=== PATIENT | female | born 1950 | race Two or more races ===

== ENCOUNTER 2019-04-23 12:05 | Emergency (ER) | payer MEDICAID, OTHER ==
[~2019-04-23] VITALS: Ht 152.4 cm; Wt 74.8 kg
[2019-04-23] MEDS ORDERED: LIDOCAINE HCL/MPF 1% 30 ML VIAL IJ ONE (12:24)
[2019-04-23] MEDS ORDERED: TDAP [DIPH/PERTUSSIS/TET] 0.5 ML VIAL IM ONE ×2 (12:26→12:30)
[2019-04-23] MEDS ORDERED: ACETAMINOPHEN 325 MG TABLET ONE (12:26)
[2019-04-23] MEDS ORDERED: ACETAMINOPHEN 325 MG TABLET PO ONE (12:30)
--- NOTE | 2019-04-23 13:23 | NUR ---
BOTH 5TH FINGER SUTURED BY YUE LARIOS. CLEANSED AND COVERED WITH CLEAN AND DRY DRESSING. BP IMPROVED.
[2019-04-23 13:25] VITALS: BP 147/69
== END 2019-04-23 13:26 | disposition home or self-care (01) ==
LOC: ER 12:08
DX: S61.217A Laceration without foreign body of left little finger without damage to nail, initial encounter (principal); S61.216A Laceration without foreign body of right little finger without damage to nail, initial encounter; I10 Essential (primary) hypertension; E11.9 Type 2 diabetes mellitus without complications; Z88.5 Allergy status to narcotic agent; W26.8XXA Contact with other sharp object(s), not elsewhere classified, initial encounter; Y93.89 Activity, other specified; Y92.89 Other specified places as the place of occurrence of the external cause; Y99.8 Other external cause status
CPT/HCPCS: 12002; 90471; 90715; 99284; A6402; A6403; J3490

== ENCOUNTER 2023-01-30 12:40 | Emergency (ER) | payer OTHER ==
[~2023-01-30] VITALS: Ht 152.4 cm; Wt 72.6 kg
--- NOTE | 2023-01-30 13:21 | NUR ---
Patient AOx4 able to express her concerns. Pt shows no signs of distress, discussed plan of care, pt verbalized agreement
--- NOTE | 2023-01-30 13:25 | NUR ---
DR ORTEZ AT BEDSIDE FOR EVAL. ORDERS CARRIED OUT
[2023-01-30] MEDS ORDERED: KETOROLAC TROMETHAMINE INJ 30 MG/ML VIAL ONE (13:28)
[2023-01-30] MEDS ORDERED: KETOROLAC TROMETHAMINE INJ 60 MG/2 ML VIAL IM ONE (13:30)
[2023-01-30] MEDS ORDERED: CYCLOBENZAPRINE 10 MG TABLET PO ONE (13:30)
[2023-01-30] MEDS ORDERED: CYCLOBENZAPRINE 10 MG TABLET ONE (13:30)
--- NOTE | 2023-01-30 13:33 | NUR ---
PT GIVEN FLEXERIL PO WELL TOLERATED, TORADOL 30MG IM DELTOID RT GIVEN SLOWLY ORDERED.
[2023-01-30] MEDS ORDERED: CYCL5TAB PO (14:54)
[2023-01-30 16:27] VITALS: BP 138/82
== END 2023-01-30 16:27 | disposition home or self-care (01) ==
LOC: ER 12:54
DX: M54.50 Low back pain, unspecified (principal); I10 Essential (primary) hypertension; E11.9 Type 2 diabetes mellitus without complications; Z88.8 Allergy status to other drugs, medicaments and biological substances
CPT/HCPCS: 99283; 96372; J1885

== ENCOUNTER → 2024-09-27 | Emergency (ER) | payer OTHER ==
[~2024-09-27] VITALS: Ht 162.6 cm; Wt 61.2 kg
[~2024-09-27] MED LIST: CYCL5TAB PO; METOCLOPRAMIDE HCL 10 MG/2 ML VIAL ONE; diphenhydrAMINE HCL 50 MG/ML VIAL ONE
[2024-09-27 11:22] VITALS: BP 153/61; TEMP 98.2; O2SAT 99
[2024-09-27 12:06] LABS: BASOPHILS % (AUTO) 0.3 % (0.0-2.0); EOSINOPHILS # (AUTO) 0.2 K/uL (0.0-0.7); EOSINOPHILS % (AUTO) 3.1 % (0.0-6.0); HEMATOCRIT 40 % (33-45); HEMOGLOBIN 13.2 g/dL (11.5-14.8); LYMPHOCYTES # (AUTO) 2.7 K/uL (0.8-4.8); LYMPHOCYTES % (AUTO) 41.3 % (20.0-44.0); MEAN CORPUSCULAR HEMOGLOBIN 31 PG (26.0-33.0); MEAN CORPUSCULAR HGB CONC 33 g/dl (31.0-36.0); MEAN CORPUSCULAR VOLUME 92 fL (82-100); MONOCYTES # (AUTO) 0.7 K/uL (0.1-1.30); MONOCYTES % (AUTO) 10.8 % (2.0-12.0); NEUTROPHILS # (AUTO) 2.9 K/uL (1.8-8.9); NEUTROPHILS % (AUTO) 44.5 % (43.0-81.0); PLATELET COUNT (AUTO) 324 K/uL (150-450); RED BLOOD CELL COUNT(AUTO) 4.31 MIL/uL (4.0-5.2); RED CELL DISTRIBUTION WIDTH 12.9 % (11.5-15.0); WHITE BLOOD COUNT (AUTO) 6.6 K/uL (4.3-11.0)
[2024-09-27] MEDS: diphenhydrAMINE HCL 50 MG/ML VIAL IV ONE (12:09)
[2024-09-27] MEDS: IV NS 0.9% 1,000 ML BAG IV ONE (12:09)
[2024-09-27] MEDS: METOCLOPRAMIDE HCL 10 MG/2 ML VIAL IV ONE (12:10)
[2024-09-27 12:18] LABS: INR 1.06 (0.91-1.10); PARTIAL THROMBOPLASTIN TIME 26.9 SEC (24.3-34.3); PROTHROMBIN TIME 11.2 SECS (9.2-11.1)
[2024-09-27 12:22] LABS: CALCIUM, SERUM 9.3 mg/dL (8.5-10.1); CARBON DIOXIDE 30 mmol/L (21-32); CHLORIDE 104 mmol/L (98-107); CREATININE 0.7 mg/dL (0.6-1.3); GLUCOSE 181 mg/dL (74-106); POTASSIUM 3.8 mmol/L (3.5-5.1); SODIUM SERUM 138 mmol/L (136-145); UREA NITROGEN, BLOOD 10 mg/dL (7-18)
[2024-09-27 12:27] LABS: ALANINE AMINOTRANSFERASE 18 U/L (12-78); ALBUMIN 3.7 g/dL (3.4-5.0); ALKALINE PHOSPHATASE 73 U/L (46-116); ASPARTATE AMINOTRANSFERASE 15 U/L (15-37); BILIRUBIN,DIRECT 0.1 mg/dL (0.0-0.2); BILIRUBIN,TOTAL 0.2 mg/dL (0.2-1.0); TOTAL PROTEIN, SERUM 8.5 g/dL (6.4-8.2)
== END | disposition home or self-care (01) ==
LOC: ER 11:14
DX: H11.31 Conjunctival hemorrhage, right eye (principal); R51.9 Headache, unspecified; E11.9 Type 2 diabetes mellitus without complications; I10 Essential (primary) hypertension; Z88.5 Allergy status to narcotic agent
CPT/HCPCS: 99285; 96374; 70450; 96361; 96375; 93005; 85025; 80048; 80076; 36415; 84484; 85730; J1200; J2765; J7030